=== PATIENT | female | born 1945 | race Caucasian/White ===

== ENCOUNTER 2020-07-30 11:53 | Observation (INO) ==
[2020-07-31] MEDS ORDERED: Acetaminophen 325 MG TABLET PO PRN (03:50)
[2020-07-31] MEDS ORDERED: Doxycycline 100 MG VIAL IVPB SCH (06:00)
[2020-07-31] MEDS: Levalbuterol 1 PUFF INHALER IH SCH ×5 (06:47→19:33)
[2020-07-31] MEDS: Ipratropium 1 PUFF INHALER IH SCH ×5 (06:47→19:33)
[2020-07-31] MEDS ORDERED: CefTRIAXone 1,000 MG VIAL IVPB SCH (09:00)
[2020-07-31] MEDS: cefTRIAXone 1,000 MG in Water for inj. (sterile) 10 ML IVP SCH (09:38)
[2020-07-31] MEDS: Folic Acid 1 MG TABLET PO SCH (09:38)
[2020-07-31] MEDS: Cholecalciferol (D-3) 1,000 UNIT (25MCG) TABLET PO SCH (09:38)
[2020-07-31] MEDS: lisinopriL 20 MG TABLET PO SCH (09:38)
[2020-07-31] MEDS: Ascorbic Acid 500 MG TABLET PO SCH (09:38)
[2020-07-31] MEDS: Aspirin Enteric Coated 81 MG Tablet PO SCH (09:38)
[2020-07-31] MEDS: Dexamethasone 4 MG/ML VIAL IVP SCH (09:42)
[2020-07-31] MEDS: Doxycycline 100 MG in 0.9 % Sodium Chloride Mini Bag 100 ML IVPB SCH (16:55)
[2020-07-31] MEDS ORDERED: *HR* Rivaroxaban 10 MG TABLET PO SCH (17:00)
[2020-08-01] MEDS: Levalbuterol 1 PUFF INHALER IH SCH ×5 (02:01→15:33)
[2020-08-01] MEDS: Ipratropium 1 PUFF INHALER IH SCH ×5 (02:01→15:33)
[2020-08-01 05:19] LABS: Hematocrit 39.7 % (35.3-44.9); Hemoglobin 12.9 g/dL (11.5-15.4); Mean Corpuscular HGB Conc 32.5 g/dL (31.6-35.5); Mean Corpuscular Hemoglobin 31.5 pg (28.0-33.3); Mean Corpuscular Volume 96.8 fL (83.0-100.0); Mean Platelet Volume 9.9 fL (9.4-12.4); Platelet Count 291 K/mcL (140-400); Red Cell Distribution Width 13.4 % (11.5-14.5); White Blood Count 14.8 K/mcL (4.3-11.1)
[2020-08-01] MEDS: Doxycycline 100 MG in 0.9 % Sodium Chloride Mini Bag 100 ML IVPB SCH (05:27)
[2020-08-01 05:34] LABS: BUN/Creatinine Ratio 31 (6-26); Blood Urea Nitrogen 22 mg/dL (8-23); Calcium 8.5 mg/dL (8.6-10.3); Carbon Dioxide 32 mEq/L (23-29); Chloride 100 mEq/L (98-107); Glucose 134 mg/dL (70-105); Magnesium 2.3 mg/dL (1.6-2.6); Osmolality,Calculated 287 (280-300); Potassium 4.9 mEq/L (3.5-5.1); Sodium 136 mEq/L (136-145); eGFR For African Americans > 60 (> 60); eGFR For Non-African Americans > 60 (> 60)
[2020-08-01 08:41] LABS: Ferritin 716 ng/mL (10-120)
[2020-08-01 09:06] LABS: C-Reactive Protein 15 mg/L (Less than 10)
[2020-08-01] MEDS: lisinopriL 20 MG TABLET PO SCH (09:21)
[2020-08-01] MEDS: Aspirin Enteric Coated 81 MG Tablet PO SCH (09:21)
[2020-08-01] MEDS: Cholecalciferol (D-3) 1,000 UNIT (25MCG) TABLET PO SCH (09:21)
[2020-08-01] MEDS: cefTRIAXone 1,000 MG in Water for inj. (sterile) 10 ML IVP SCH (09:22)
[2020-08-01] MEDS: Folic Acid 1 MG TABLET PO SCH (09:22)
[2020-08-01] MEDS: Ascorbic Acid 500 MG TABLET PO SCH (09:22)
[2020-08-01] MEDS: Dexamethasone 4 MG/ML VIAL IVP SCH (09:23)
[2020-08-01 11:20] VITALS: BP 104/71
== END 2020-08-01 15:40 | disposition other institution (70) ==
LOC: INPGRE → OBSVTOIN 07-31 03:06 → INTOOBSV 07-31 03:06
PROVIDERS: ADMIT Family Medicine; ATTEND Family Medicine

== ENCOUNTER 2020-07-31 15:23 | Inpatient (IN) ==
[2020-08-01] MEDS: Levalbuterol 1 PUFF INHALER IH SCH ×2 (16:02→20:44)
[2020-08-01] MEDS: Ipratropium 1 PUFF INHALER IH SCH ×2 (16:02→20:44)
[2020-08-01] MEDS: *HR* Rivaroxaban 10 MG TABLET PO SCH (16:18)
[2020-08-01] MEDS: Doxycycline 100 MG CAPSULE PO SCH (20:41)
[2020-08-02] MEDS: Ipratropium 1 PUFF INHALER IH SCH ×6 (00:39→19:34)
[2020-08-02] MEDS: Levalbuterol 1 PUFF INHALER IH SCH ×7 (00:39→19:33)
[2020-08-02 05:45] LABS: Basophils # 0.1 K/mcL (0.0-0.2); Basophils % 0.4 %; Hematocrit 40.8 % (35.3-44.9); Hemoglobin 13.3 g/dL (11.5-15.4); Immature Granulocytes % 3.8 % (0-4); Lymphocytes # 1.1 K/mcL (0.6-4.6); Lymphocytes % 6.8 %; Mean Corpuscular HGB Conc 32.6 g/dL (31.6-35.5); Mean Corpuscular Hemoglobin 31.1 pg (28.0-33.3); Mean Corpuscular Volume 95.6 fL (83.0-100.0); Mean Platelet Volume 10.2 fL (9.4-12.4); Monocytes # 0.7 K/mcL (0.0-1.3); Monocytes % 4.1 %; Neutrophils # 13.8 K/mcL (1.6-8.9); Platelet Count 296 K/mcL (140-400); Red Blood Count 4.27 M/mcL (3.82-4.97); Red Cell Distribution Width 13.4 % (11.5-14.5); Segmented Neutrophils % 84.9 %; White Blood Count 16.2 K/mcL (4.3-11.1)
[2020-08-02 05:59] LABS: BUN/Creatinine Ratio 31 (6-26); Blood Urea Nitrogen 22 mg/dL (8-23); Calcium 8.7 mg/dL (8.6-10.3); Carbon Dioxide 32 mEq/L (23-29); Chloride 99 mEq/L (98-107); Glucose 126 mg/dL (70-105); Osmolality,Calculated 283 (280-300); Potassium 4.9 mEq/L (3.5-5.1); Sodium 134 mEq/L (136-145); eGFR For African Americans > 60 (> 60); eGFR For Non-African Americans > 60 (> 60)
[2020-08-02] MEDS ORDERED: cefTRIAXone 1,000 MG in Water for inj. (sterile) 10 ML IVP SCH (09:00)
[2020-08-02] MEDS: Folic Acid 1 MG TABLET PO SCH (09:14)
[2020-08-02] MEDS: Aspirin Enteric Coated 81 MG Tablet PO SCH (09:14)
[2020-08-02] MEDS: Doxycycline 100 MG CAPSULE PO SCH ×2 (09:14→20:26)
[2020-08-02] MEDS: Cholecalciferol (D-3) 1,000 UNIT (25MCG) TABLET PO SCH (09:14)
[2020-08-02] MEDS: Ascorbic Acid 500 MG TABLET PO SCH (09:14)
[2020-08-02] MEDS: lisinopriL 20 MG TABLET PO SCH (09:15)
[2020-08-02] MEDS: dexAMETHasone 4 MG TABLET PO SCH (09:15)
[2020-08-02] MEDS: *HR* Rivaroxaban 10 MG TABLET PO SCH (16:17)
[2020-08-03] MEDS: Ipratropium 1 PUFF INHALER IH SCH ×5 (04:08→21:42)
[2020-08-03] MEDS: Levalbuterol 1 PUFF INHALER IH SCH ×5 (04:08→21:43)
[2020-08-03 06:16] LABS: Basophils # 0.1 K/mcL (0.0-0.2); Basophils % 0.4 %; Hematocrit 41.6 % (35.3-44.9); Hemoglobin 13.7 g/dL (11.5-15.4); Immature Granulocytes % 5.2 % (0-4); Lymphocytes # 1.1 K/mcL (0.6-4.6); Lymphocytes % 6.3 %; Mean Corpuscular HGB Conc 32.9 g/dL (31.6-35.5); Mean Corpuscular Hemoglobin 31.3 pg (28.0-33.3); Mean Platelet Volume 9.9 fL (9.4-12.4); Monocytes # 0.8 K/mcL (0.0-1.3); Monocytes % 4.3 %; Neutrophils # 15.1 K/mcL (1.6-8.9); Platelet Count 325 K/mcL (140-400); Red Blood Count 4.38 M/mcL (3.82-4.97); Red Cell Distribution Width 13.6 % (11.5-14.5); Segmented Neutrophils % 83.8 %
[2020-08-03 06:55] LABS: BUN/Creatinine Ratio 35 (6-26); Blood Urea Nitrogen 24 mg/dL (8-23); Calcium 8.5 mg/dL (8.6-10.3); Carbon Dioxide 32 mEq/L (23-29); Chloride 99 mEq/L (98-107); Glucose 106 mg/dL (70-105); Osmolality,Calculated 282 (280-300); Potassium 4.7 mEq/L (3.5-5.1); Sodium 134 mEq/L (136-145); eGFR For African Americans > 60 (> 60); eGFR For Non-African Americans > 60 (> 60)
[2020-08-03 06:57] LABS: Platelet Estimate Normal (Normal)
[2020-08-03 06:58] LABS: Reactive Lymphocytes Present (Not Present)
[2020-08-03 08:29] LABS: C-Reactive Protein < 5 mg/L (Less than 10)
[2020-08-03] MEDS: Ascorbic Acid 500 MG TABLET PO SCH (08:44)
[2020-08-03] MEDS: Folic Acid 1 MG TABLET PO SCH (08:44)
[2020-08-03] MEDS: dexAMETHasone 4 MG TABLET PO SCH (08:44)
[2020-08-03] MEDS: Aspirin Enteric Coated 81 MG Tablet PO SCH (08:44)
[2020-08-03] MEDS: Doxycycline 100 MG CAPSULE PO SCH ×2 (08:44→21:34)
[2020-08-03] MEDS: lisinopriL 20 MG TABLET PO SCH (08:44)
[2020-08-03] MEDS: Cholecalciferol (D-3) 1,000 UNIT (25MCG) TABLET PO SCH (08:44)
[2020-08-03 08:48] LABS: Ferritin 616 ng/mL (10-120)
[2020-08-03] MEDS: *HR* Rivaroxaban 10 MG TABLET PO SCH (17:46)
[2020-08-04] MEDS: Ipratropium 1 PUFF INHALER IH SCH ×4 (04:11→21:59)
[2020-08-04] MEDS: Levalbuterol 1 PUFF INHALER IH SCH ×4 (04:11→21:59)
[2020-08-04] MEDS: Folic Acid 1 MG TABLET PO SCH (08:28)
[2020-08-04] MEDS: Cholecalciferol (D-3) 1,000 UNIT (25MCG) TABLET PO SCH (08:29)
[2020-08-04] MEDS: Aspirin Enteric Coated 81 MG Tablet PO SCH (08:29)
[2020-08-04] MEDS: lisinopriL 20 MG TABLET PO SCH (08:29)
[2020-08-04] MEDS: Ascorbic Acid 500 MG TABLET PO SCH (08:29)
[2020-08-04] MEDS: dexAMETHasone 4 MG TABLET PO SCH (08:29)
[2020-08-04] MEDS: Doxycycline 100 MG CAPSULE PO SCH ×2 (08:29→21:24)
[2020-08-04 15:25] LABS: Bilirubin,Urine Negative (Negative); Blood,Urine Moderate (Negative); Clarity,Urine Clear (Clear); Color,Urine Yellow (Yellow); Glucose,Urine (UA) Normal (Normal); Ketones,Urine Negative (Negative); Leukocyte Esterase,Urine Negative (Negative); Nitrite,Urine Negative (Negative); Protein,Urine Negative (Neg-Trace); Urobilinogen,Urine Normal (Normal)
[2020-08-04 15:37] LABS: Calcium Oxalate Crystals,Urine Present; Squamous Epithelial Cell,Urine Few per hpf (None-Few); WBC,Urine 0-3 per hpf (0-3)
[2020-08-04] MEDS: *HR* Rivaroxaban 10 MG TABLET PO SCH (18:30)
[2020-08-05] MEDS: Ipratropium 1 PUFF INHALER IH SCH ×4 (03:42→21:56)
[2020-08-05] MEDS: Levalbuterol 1 PUFF INHALER IH SCH ×4 (03:42→21:55)
[2020-08-05 06:09] LABS: Hematocrit 44.2 % (35.3-44.9); Mean Corpuscular HGB Conc 31.7 g/dL (31.6-35.5); Mean Corpuscular Hemoglobin 30.6 pg (28.0-33.3); Mean Corpuscular Volume 96.5 fL (83.0-100.0); Platelet Count 302 K/mcL (140-400); Red Blood Count 4.58 M/mcL (3.82-4.97); Red Cell Distribution Width 13.7 % (11.5-14.5); White Blood Count 18.6 K/mcL (4.3-11.1)
[2020-08-05 06:41] LABS: BUN/Creatinine Ratio 41 (6-26); Blood Urea Nitrogen 28 mg/dL (8-23); Calcium 8.5 mg/dL (8.6-10.3); Carbon Dioxide 28 mEq/L (23-29); Chloride 102 mEq/L (98-107); Glucose 91 mg/dL (70-105); Magnesium 2.1 mg/dL (1.6-2.6); Osmolality,Calculated 285 (280-300); Potassium 4.7 mEq/L (3.5-5.1); Sodium 135 mEq/L (136-145); eGFR For African Americans > 60 (> 60); eGFR For Non-African Americans > 60 (> 60)
[2020-08-05] MEDS: Cholecalciferol (D-3) 1,000 UNIT (25MCG) TABLET PO SCH (09:08)
[2020-08-05] MEDS: Ascorbic Acid 500 MG TABLET PO SCH (09:08)
[2020-08-05] MEDS: lisinopriL 20 MG TABLET PO SCH (09:08)
[2020-08-05] MEDS: Aspirin Enteric Coated 81 MG Tablet PO SCH (09:08)
[2020-08-05] MEDS: Folic Acid 1 MG TABLET PO SCH (09:08)
[2020-08-05 13:43] LABS: C-Reactive Protein < 5 mg/L (Less than 10); Ferritin 549 ng/mL (10-120)
[2020-08-05] MEDS: *HR* Rivaroxaban 10 MG TABLET PO SCH (17:28)
[2020-08-06] MEDS: Ipratropium 1 PUFF INHALER IH SCH ×2 (03:57→10:28)
[2020-08-06] MEDS: Levalbuterol 1 PUFF INHALER IH SCH ×2 (03:57→10:30)
[2020-08-06] MEDS: Ascorbic Acid 500 MG TABLET PO SCH (09:51)
[2020-08-06] MEDS: lisinopriL 20 MG TABLET PO SCH (09:52)
[2020-08-06] MEDS: Cholecalciferol (D-3) 1,000 UNIT (25MCG) TABLET PO SCH (09:52)
[2020-08-06] MEDS: lisinopriL 10 MG TABLET PO SCH (09:52)
[2020-08-06] MEDS: Aspirin Enteric Coated 81 MG Tablet PO SCH (09:52)
[2020-08-06] MEDS: Folic Acid 1 MG TABLET PO SCH (09:52)
[2020-08-06] MEDS ORDERED: Ipratropium 1 PUFF INHALER IH PRN (14:28)
[2020-08-06] MEDS ORDERED: Levalbuterol 1 PUFF INHALER IH PRN (14:29)
[2020-08-06] MEDS: *HR* Rivaroxaban 10 MG TABLET PO SCH (18:00)
[2020-08-07 06:41] LABS: Hematocrit 44.9 % (35.3-44.9); Hemoglobin 14.6 g/dL (11.5-15.4); Mean Corpuscular HGB Conc 32.5 g/dL (31.6-35.5); Mean Corpuscular Hemoglobin 31.5 pg (28.0-33.3); Mean Corpuscular Volume 96.8 fL (83.0-100.0); Mean Platelet Volume 9.8 fL (9.4-12.4); Platelet Count 214 K/mcL (140-400); Red Blood Count 4.64 M/mcL (3.82-4.97); Red Cell Distribution Width 13.9 % (11.5-14.5); White Blood Count 10.5 K/mcL (4.3-11.1)
[2020-08-07 06:56] LABS: Alanine Aminotransferase 136 Units/L (7-52); Albumin 2.6 g/dL (3.5-5.7); Albumin/Globulin Ratio 1.1 (1.1-2.2); Alkaline Phosphatase 84 Units/L (34-104); Aspartate Amino Transferase 26 Units/L (13-39); BUN/Creatinine Ratio 33 (6-26); Bilirubin,Total 0.9 mg/dL (0.3-1.0); Blood Urea Nitrogen 27 mg/dL (8-23); Calcium 8.5 mg/dL (8.6-10.3); Carbon Dioxide 34 mEq/L (23-29); Chloride 98 mEq/L (98-107); Globulin 2.3 g/dL (2.4-3.5); Glucose 93 mg/dL (70-105); Magnesium 1.9 mg/dL (1.6-2.6); Osmolality,Calculated 281 (280-300); Potassium 4.9 mEq/L (3.5-5.1); Sodium 133 mEq/L (136-145); Total Protein 4.9 g/dL (6.4-8.9); eGFR For African Americans > 60 (> 60); eGFR For Non-African Americans > 60 (> 60)
[2020-08-07] MEDS: lisinopriL 10 MG TABLET PO SCH (08:37)
[2020-08-07] MEDS: Cholecalciferol (D-3) 1,000 UNIT (25MCG) TABLET PO SCH (08:44)
[2020-08-07] MEDS: Folic Acid 1 MG TABLET PO SCH (08:44)
[2020-08-07] MEDS: Ascorbic Acid 500 MG TABLET PO SCH (08:44)
[2020-08-07] MEDS: Aspirin Enteric Coated 81 MG Tablet PO SCH (08:44)
[2020-08-07 13:14] LABS: C-Reactive Protein < 5 mg/L (Less than 10)
[2020-08-07 13:18] LABS: Ferritin 885 ng/mL (10-120)
[2020-08-07] MEDS: *HR* Rivaroxaban 10 MG TABLET PO SCH (17:28)
[2020-08-07] MEDS: Acetaminophen 325 MG TABLET PO PRN (21:20)
[2020-08-08] MEDS: lisinopriL 10 MG TABLET PO SCH (08:52)
[2020-08-08] MEDS: Aspirin Enteric Coated 81 MG Tablet PO SCH (09:16)
[2020-08-08] MEDS: Ascorbic Acid 500 MG TABLET PO SCH (09:16)
[2020-08-08] MEDS: Folic Acid 1 MG TABLET PO SCH (09:16)
[2020-08-08] MEDS: Cholecalciferol (D-3) 1,000 UNIT (25MCG) TABLET PO SCH (09:16)
[2020-08-08] MEDS: *HR* Rivaroxaban 10 MG TABLET PO SCH (17:12)
[2020-08-08] MEDS: Acetaminophen 325 MG TABLET PO PRN (20:13)
[2020-08-09] MEDS: Cholecalciferol (D-3) 1,000 UNIT (25MCG) TABLET PO SCH (08:08)
[2020-08-09] MEDS: Aspirin Enteric Coated 81 MG Tablet PO SCH (08:08)
[2020-08-09] MEDS: Folic Acid 1 MG TABLET PO SCH (08:09)
[2020-08-09] MEDS: Ascorbic Acid 500 MG TABLET PO SCH (08:09)
[2020-08-09] MEDS: *HR* Rivaroxaban 10 MG TABLET PO SCH (16:01)
[2020-08-10] MEDS: Ascorbic Acid 500 MG TABLET PO SCH (09:40)
[2020-08-10] MEDS: Folic Acid 1 MG TABLET PO SCH (09:40)
[2020-08-10] MEDS: Cholecalciferol (D-3) 1,000 UNIT (25MCG) TABLET PO SCH (09:40)
[2020-08-10] MEDS: Aspirin Enteric Coated 81 MG Tablet PO SCH (09:40)
[2020-08-10] MEDS: *HR* Rivaroxaban 10 MG TABLET PO SCH (16:39)
[2020-08-10] MEDS ORDERED: Benzonatate 100 MG CAPSULE PO PRN (20:15)
[2020-08-11] MEDS: Ascorbic Acid 500 MG TABLET PO SCH (08:22)
[2020-08-11] MEDS: Folic Acid 1 MG TABLET PO SCH (08:22)
[2020-08-11] MEDS: Aspirin Enteric Coated 81 MG Tablet PO SCH (08:22)
[2020-08-11] MEDS: Cholecalciferol (D-3) 1,000 UNIT (25MCG) TABLET PO SCH (08:22)
[2020-08-11] MEDS: *HR* Rivaroxaban 10 MG TABLET PO SCH (15:58)
[2020-08-12 05:38] LABS: Basophils % 0.3 %; Eosinophils # 0.3 K/mcL (0.0-0.6); Eosinophils % 3.6 %; Hematocrit 39.4 % (35.3-44.9); Hemoglobin 12.5 g/dL (11.5-15.4); Immature Granulocytes % 0.4 % (0-4); Lymphocytes # 1.3 K/mcL (0.6-4.6); Lymphocytes % 17.8 %; Mean Corpuscular HGB Conc 31.7 g/dL (31.6-35.5); Mean Corpuscular Hemoglobin 30.9 pg (28.0-33.3); Mean Corpuscular Volume 97.3 fL (83.0-100.0); Mean Platelet Volume 10.5 fL (9.4-12.4); Monocytes # 0.7 K/mcL (0.0-1.3); Monocytes % 10.1 %; Neutrophils # 4.8 K/mcL (1.6-8.9); Platelet Count 120 K/mcL (140-400); Red Blood Count 4.05 M/mcL (3.82-4.97); Red Cell Distribution Width 13.9 % (11.5-14.5); Segmented Neutrophils % 67.8 %
[2020-08-12 05:56] LABS: BUN/Creatinine Ratio 24 (6-26); Blood Urea Nitrogen 15 mg/dL (8-23); Calcium 8.1 mg/dL (8.6-10.3); Carbon Dioxide 32 mEq/L (23-29); Chloride 103 mEq/L (98-107); Glucose 78 mg/dL (70-105); Osmolality,Calculated 286 (280-300); Sodium 138 mEq/L (136-145); eGFR For African Americans > 60 (> 60); eGFR For Non-African Americans > 60 (> 60)
[2020-08-12 06:06] LABS: Potassium 4.1 mEq/L (3.5-5.1)
[2020-08-12 07:02] VITALS: BP 104/69
[2020-08-12] MEDS: Ascorbic Acid 500 MG TABLET PO SCH (08:45)
[2020-08-12] MEDS: Cholecalciferol (D-3) 1,000 UNIT (25MCG) TABLET PO SCH (08:45)
[2020-08-12] MEDS: Folic Acid 1 MG TABLET PO SCH (08:45)
[2020-08-12] MEDS: Aspirin Enteric Coated 81 MG Tablet PO SCH (08:45)
== END 2020-08-12 11:14 | disposition home health service (06) | DRG 177 ==
LOC: INPGRE 08-01 15:43
PROVIDERS: ADMIT Family Medicine; ATTEND Family Medicine